=== PATIENT | male | born 1970 | race Caucasian/White ===

== ENCOUNTER 2021-06-11 13:19 | Emergency (ER) | payer MEDICARE, MEDICAID ==
[~2021-06-11] VITALS: Ht 185.4 cm; Wt 90.7 kg
[2021-06-11 13:30] VITALS: BP_SYST 125
[2021-06-11] MEDS ORDERED: BACITRACIN 1 GM OINT TP ONE (14:30)
[2021-06-11 14:31] LABS: BASOPHILS % (AUTO) 0.3 % (0.0-2.0); EOSINOPHILS % (AUTO) 0.1 % (0.0-4.0); HEMATOCRIT 35.2 % (36-54); HEMOGLOBIN 11.6 g/dL (14.0-18.0); LYMPHOCYTES # (AUTO) 0.8 K/uL (1.0-5.5); LYMPHOCYTES % (AUTO) 12.1 % (20.5-51.5); MEAN CORPUSCULAR HEMOGLOBIN 27 pg (27-31); MEAN CORPUSCULAR HGB CONC 33 % (32-36); MEAN CORPUSCULAR VOLUME 83 fL (79.0-98.0); MONOCYTES # (AUTO) 0.5 K/uL (0.0-1.0); MONOCYTES % (AUTO) 8.4 % (1.7-9.3); NEUTROPHILS # (AUTO) 5.1 K/uL (1.8-7.7); NEUTROPHILS % (AUTO) 79.1 % (40.0-70.0); PLATELET COUNT (AUTO) 253 K/uL (130-430); RED BLOOD CELL COUNT(AUTO) 4.26 MIL/uL (4.2-6.2); RED CELL DISTRIBUTION WIDTH 15.9 % (9.0-15.0); WHITE BLOOD COUNT (AUTO) 6.4 K/uL (4.8-10.8)
[2021-06-11 14:43] LABS: CALCIUM 8.7 mg/dL (8.4-11.0); CREATININE 0.67 mg/dL (0.55-1.30); POTASSIUM 4.1 mmol/L (3.5-5.1)
[2021-06-11 14:48] LABS: ALBUMIN 3.5 g/dL (3.4-4.8); C-REACTIVE PROTEIN QUANT 1.1 mg/dL (0-0.5); TOTAL BILIRUBIN 0.4 mg/dL (0.0-1.0); URIC ACID 5.6 mg/dL (2.4-7.0)
[2021-06-11] MEDS: LIDOCAINE 1% 10 MG/ML, 20 ML MDV INJ ONE (14:51)
[2021-06-11 15:04] LABS: PROTHROMBIN TIME 10.1 SECS (9.5-12.5)
[2021-06-11 15:15] LABS: ERYTHROCYTE SEDIMENTATION RATE 12 MM/HR (0-15)
[2021-06-11] MEDS: HYDROcodone/ACETAMIN 10-325 MG TAB PO ONE ×2 (15:15→15:24)
[2021-06-11] MEDS: KETOROLAC TROMETHAMINE 60 MG/2 ML VIAL IM ONE (15:17)
[2021-06-11] MEDS: DIPH-TET-PERTUS Vaccine 0.5 ML VIAL (ADACEL) I.M. ONE (15:18)
[2021-06-11] MEDS ORDERED: HYDR-3917 PO (15:21)
[2021-06-11] MEDS ORDERED: IBUP-1971 PO (15:21)
[2021-06-11 16:20] VITALS: BP_SYST 132
[2021-06-11 18:26] LABS: BODY FLUID SOURCE/ TYPE SYNOVIAL; SOURCE/TYPE ,BODY FLUID SYNOVIAL
[2021-06-11 18:36] LABS: BF APPEARANCE UNSPUN CLOUDY (CLEAR)
[2021-06-11 18:37] LABS: BODY FLUID COLOR RED (LT YELLOW); BODY FLUID TOTAL VOLUME 40 mL; RBC, BODY FLUID 13950 /uL; WBC, BODY FLUID 26 /uL
[2021-06-11 22:30] LABS: EOSINOPHIL, BODY FLUID 0 %; LYMPHOCYTES, BODY FLUID 11 %; MONOCYTES,BODY FLUID 50 %; NEUTROPHIL, BODY FLUID 39 %
[2021-06-11 22:34] LABS: BODY FLUID GLUCOSE 127 mg/dL; BODY FLUID TOTAL PROTEIN 3.3 g/dL
== END 2021-06-11 16:20 | disposition home or self-care (01) ==
LOC: SED 13:19
DX: M25.461 Effusion, right knee (principal); Z79.899 Other long term (current) drug therapy
CPT/HCPCS: 20610; 36415; 73560; 76882; 80053; 82947; 84157; 84550; 85025; 85610; 85651; 85730; 86140; 87070; 89051 ×2; 89060; 90471; 90715; 96372; 99285; J1885; J2001

== ENCOUNTER 2021-06-11 20:26 | Emergency (ER) | payer OTHER, MEDICAID ==
[~2021-06-11] VITALS: Ht 185.4 cm; Wt 90.7 kg
[2021-06-11 20:26] VITALS: BP_SYST 140
[~2021-06-11 20:26] MED LIST: HYDR-3917 PO; IBUP-1971 PO
[2021-06-11 21:09] LABS: BASOPHILS % (AUTO) 0.3 % (0.0-2.0); EOSINOPHILS % (AUTO) 0.1 % (0.0-4.0); HEMATOCRIT 36.2 % (36-54); HEMOGLOBIN 11.8 g/dL (14.0-18.0); LYMPHOCYTES % (AUTO) 13.3 % (20.5-51.5); MEAN CORPUSCULAR HEMOGLOBIN 27 pg (27-31); MEAN CORPUSCULAR HGB CONC 33 % (32-36); MEAN CORPUSCULAR VOLUME 83 fL (79.0-98.0); MONOCYTES # (AUTO) 0.7 K/uL (0.0-1.0); MONOCYTES % (AUTO) 9.8 % (1.7-9.3); NEUTROPHILS # (AUTO) 5.7 K/uL (1.8-7.7); NEUTROPHILS % (AUTO) 76.5 % (40.0-70.0); PLATELET COUNT (AUTO) 282 K/uL (130-430); RED BLOOD CELL COUNT(AUTO) 4.35 MIL/uL (4.2-6.2); RED CELL DISTRIBUTION WIDTH 15.7 % (9.0-15.0); WHITE BLOOD COUNT (AUTO) 7.5 K/uL (4.8-10.8)
[2021-06-11 21:28] LABS: ANION GAP 9 (5-15); CALCIUM 9.2 mg/dL (8.4-11.0); CHLORIDE 102 mmol/L (98-107); GLUCOSE 131 mg/dL (70-99); POTASSIUM 4.6 mmol/L (3.5-5.1); SODIUM SERUM 139 mmol/L (136-145); UREA NITROGEN, BLOOD 12 mg/dL (8-21)
[2021-06-11 21:43] LABS: GFR AFRICAN AMERICAN 114 mL/min (>90)
[2021-06-11 21:44] LABS: ALANINE AMINOTRANSFERASE 12 U/L (12-78); ALBUMIN 3.8 g/dL (3.4-4.8); ASPARTATE AMINOTRANSFERASE 14 U/L (10-37); TOTAL BILIRUBIN 0.5 mg/dL (0.0-1.0)
[2021-06-11 21:48] LABS: ACETAMINOPHEN < 1 ug/mL (1-30); ALCOHOL, BLOOD < 3 mg/dL (<10)
[2021-06-12 06:22] LABS: BARBITURATE, URINE NEGATIVE (NEG <=200); BENZODIAZEPINE, URINE NEGATIVE (NEG <=150); CANNABINOID, URINE NEGATIVE (NEG <=50); COCAINE, URINE NEGATIVE (NEG <=150); METHAMPHETAMINES SCREEN,URINE NEGATIVE (NEG <=500); OPIATE, URINE POSITIVE (NEG <=100); PHENCYCLIDINE SCREEN,URINE NEGATIVE (NEG <=25); UR TRICYCLIC ANTIDEPRESSANTS POSITIVE (NEG <=300); URINE AMPHETAMINE NEGATIVE (NEG <=500); URINE METHADONE NEGATIVE (NEG <=200); URINE OXYCODONE SCREEN NEGATIVE (NEG <=100); URINE PROPOXYPHENE SCREEN NEGATIVE (NEG <=300)
[2021-06-12 08:30] VITALS: BP_SYST 132
[2021-06-12] MEDS ORDERED: LORazepam 1 MG TABLET PO ONE (09:15)
== END 2021-06-12 14:25 ==
LOC: SED 20:26
DX: R45.851 Suicidal ideations (principal); M25.461 Effusion, right knee; F10.10 Alcohol abuse, uncomplicated; Z59.0 Homelessness; Z79.899 Other long term (current) drug therapy; Z20.822 Contact with and (suspected) exposure to COVID-19
CPT/HCPCS: 36415; 80053; 80307; 82550; 85025; 87426; 99285; G0480; G0481; G0482

== ENCOUNTER → 2022-04-26 | Emergency (ER) | payer MEDICARE, MEDICAID ==
[~2022-04-26] VITALS: Ht 185.4 cm; Wt 117.9 kg
[~2022-04-26] MED LIST changes: +IBUPROFEN 600 MG TABLET ONE; +IBUPROFEN 600 MG TABLET PO ONE; +MECLIZINE HCL 25 MG TABLET (ANITVERT) PO ONE; +NACL 0.9% 1,000 ML IV ONE
--- NOTE | 2022-04-26 13:21 | NUR ---
PT PLACED IN BED 1. REPORT TO IRA HINOJOSA.
[2022-04-26 13:30] VITALS: BP_SYST 102
[2022-04-26 14:22] LABS: BASOPHILS % (AUTO) 0.3 % (0.0-2.0); EOSINOPHILS # (AUTO) 0.1 K/uL (0.0-0.4); EOSINOPHILS % (AUTO) 2.2 % (0.0-4.0); HEMATOCRIT 37.3 % (36-54); HEMOGLOBIN 12.6 g/dL (14.0-18.0); LYMPHOCYTES # (AUTO) 0.8 K/uL (1.0-5.5); LYMPHOCYTES % (AUTO) 13.5 % (20.5-51.5); MEAN CORPUSCULAR HEMOGLOBIN 30 pg (27-31); MEAN CORPUSCULAR HGB CONC 34 % (32-36); MEAN CORPUSCULAR VOLUME 88 fL (79.0-98.0); MONOCYTES # (AUTO) 0.4 K/uL (0.0-1.0); MONOCYTES % (AUTO) 6.9 % (1.7-9.3); NEUTROPHILS # (AUTO) 4.5 K/uL (1.8-7.7); NEUTROPHILS % (AUTO) 77.1 % (40.0-70.0); PLATELET COUNT (AUTO) 210 K/uL (130-430); RED BLOOD CELL COUNT(AUTO) 4.25 MIL/uL (4.2-6.2); RED CELL DISTRIBUTION WIDTH 14.1 % (9.0-15.0); WHITE BLOOD COUNT (AUTO) 5.9 K/uL (4.8-10.8)
[2022-04-26 14:29] LABS: ANION GAP 8 (5-15); CHLORIDE 107 mmol/L (98-107); CREATININE 1.12 mg/dL (0.55-1.30); GLUCOSE 94 mg/dL (70-99); POTASSIUM 4.6 mmol/L (3.5-5.1); SODIUM SERUM 138 mmol/L (136-145); UREA NITROGEN, BLOOD 19 mg/dL (8-21)
[2022-04-26 14:32] LABS: GFR AFRICAN AMERICAN 89 mL/min (>90)
[2022-04-26 14:34] LABS: ALANINE AMINOTRANSFERASE 14 U/L (12-78); ALBUMIN 3.5 g/dL (3.4-4.8); ASPARTATE AMINOTRANSFERASE 10 U/L (10-37); TOTAL BILIRUBIN 0.4 mg/dL (0.0-1.0)
--- NOTE | 2022-04-26 14:44 | NUR ---
ERMD AT BEDSIDE AT THIS TIME
--- NOTE | 2022-04-26 18:27 | NUR ---
PT WILL BE TRANSFERRED TO [facility] ER ACCEPTING PHYSICIAN IS Steve ARCOS. NUMBER FOR REPORT [facility] ETA [id number]
--- NOTE | 2022-04-26 18:32 | NUR ---
[facility] TO [facility](RN) TO [facility] ER ACCEPTING DR KNOWLES
[2022-04-26 20:00] VITALS: BP_SYST 139
--- NOTE | 2022-04-26 20:00 | NUR ---
Patient to be transferred to [facility]. Is being transferred due to insurance purposes. Receiving facility has accepting physician and available space. ER physician has signed transfer form. Patient or responsible republican has agreed to transfer and signed form. Patient belongings inventoried and will be sent with patient. Copy of nursing notes, lab reports, EKG, Physicians Orders and X-rays to be sent with patient. Report called to Anjel Cain at receiving facility. Receiving physician is Dr. Hernandez . [facility] ambulance service has been called for transfer. ETA is now.
== END | disposition home or self-care (01) ==
LOC: SED 13:21
DX: S09.90XA Unspecified injury of head, initial encounter (principal); R55 Syncope and collapse; E11.9 Type 2 diabetes mellitus without complications; R26.2 Difficulty in walking, not elsewhere classified; W18.30XA Fall on same level, unspecified, initial encounter; Y93.89 Activity, other specified; Y92.89 Other specified places as the place of occurrence of the external cause; Y99.8 Other external cause status
CPT/HCPCS: 36415; 70450; 71045; 76376; 80053; 82550; 83605; 84484; 85025; 87426; 93005; 96360; 99285; J7030; J8597